=== PATIENT | female | born 1960 | race Caucasian/White ===

== ENCOUNTER 2021-06-09 12:25 | Emergency (ER) | payer BC ==
[2021-06-09 12:42] VITALS: BMI 23.8
[2021-06-09 14:07] LABS: EPITHELIAL CELLS FEW /hpf
[2021-06-09 15:05] LABS: HEMATOCRIT 42.1 % (32.4-45.2); HEMOGLOBIN 14.4 GM/dl (10.7-15.3); MCH 30.6 pg (25.7-33.7); MCHC 34.2 g/dl (32.0-36.0); MEAN CELL VOLUME 89.6 fl (80-96); MEAN PLT VOLUME 8.8 fl (7.5-11.1); PLATELET COUNT 293 10^3/uL (134-434); RDW 13.2 % (11.6-15.6); WHITE BLOOD COUNT 16.4 K/mm3 (4.0-10.8)
[2021-06-09 15:13] LABS: ALBUMIN 3.8 g/dl (3.4-5.0); BILIRUBIN,TOTAL 0.7 mg/dl (0.2-1); CALCIUM 9.2 mg/dl (8.5-10); CREATININE 0.7 mg/dl (0.55-1.3); TOT PROT 6.6 g/dl (6.4-8.2)
[2021-06-09] MEDS ORDERED: ACETAMINOPHEN INJECTION 100 ML IVPB ONE (15:32)
[2021-06-09] MEDS ORDERED: ACETAMINOPHEN 1000 MG/100 ML VIAL (NON FORMULARY) IVPB ONE (15:32)
[2021-06-09] MEDS ORDERED: SODIUM CHLORIDE 0.9% 500 ML INFUS.BAG IV ONE (15:32)
[2021-06-09] MEDS ORDERED: AMOX TR/POT CLAV 875MG/125MG TABLETS (FP) PO ONE (17:35)
[2021-06-09] MEDS ORDERED: AMOX TR/POT CLAV 875MG/125MG TABLETS (FP) ONE (17:41)
[2021-06-09 17:54] VITALS: BP 118/75; PULSE 78; TEMP 98.1
== END 2021-06-09 17:55 | disposition home or self-care (01) ==
LOC: FER 12:25
PROC: 3E033GC Introduction of Other Therapeutic Substance into Peripheral Vein, Percutaneous Approach (ICD-10-PCS; principal; 2021-06-09)
DX: K57.32 Diverticulitis of large intestine without perforation or abscess without bleeding (principal)
CPT/HCPCS: 36415; 74177-TC; 80053; 81003; 81015; 85027; 87086; 99285-25; J0131; Q9967